=== PATIENT | male | born 1965 | race Hispanic/Latino ===

== ENCOUNTER 2021-03-09 08:16 | Outpatient (CLI) | payer OTHER, SELFPAY | END 2021-03-09 08:17 | disposition home or self-care (01) | LOC: CSHULT 08:16 | PROVIDERS: ATTEND Clinical Nurse Specialist Adult Health | DX: R10.13 Epigastric pain (principal); R10.9 Unspecified abdominal pain; K76.89 Other specified diseases of liver | CPT/HCPCS: 93975 ==